=== PATIENT | female | born 1985 | race Hispanic/Latino ===

== ENCOUNTER 2020-08-10 19:08 | Inpatient (IN) | payer SELFPAY ==
[2020-08-10] MEDS ORDERED: Pantoprazole 40 MG VIAL ONE (19:43)
[2020-08-10] MEDS ORDERED: Ondansetron PF 4 MG/2 ML Vial ONE ×2 (19:43→22:44)
[2020-08-10] MEDS ORDERED: Ondansetron ODT 4 MG TAB ONE (19:45)
[2020-08-10 20:16] LABS: #Basophils 0.1 10x3/uL (0.0-0.2); #Eosinphils 0.1 10x3/uL (0.0-0.5); #Monocytes 0.6 10x3/uL (0.0-1.1); #Neutrophils 5.9 10x3/uL (1.5-8.4); %Basophils 0.9 % (0.0-2.0); %Eosinophils 1.1 % (0.0-6.0); %Lymphocytes 14.6 % (18.0-47.0); %Monocytes 7.8 % (0.0-10.0); %Neutrophils 75.1 % (40.0-75.0); Hemoglobin 12.6 g/dL (12.0-15.5); Mean Corpuscular HGB CONC 32.1 g/dL (32.0-36.0); Mean Corpuscular Hemoglobin 27.6 pg (27.0-33.0); Mean Corpuscular Volume 86.2 fl (81.6-98.3); Platelet Count 291 10x3/uL (150-450); RBC Distribution Width 13.3 % (11.5-14.5); Red Blood Cell (RBC) Count 4.56 10x6/uL (3.90-5.03); White Blood Cell (WBC) Count 7.9 10x3/uL (3.5-10.5)
[2020-08-10 20:21] LABS: BHCG - Serum Negative (NEGATIVE); Pregs Control Bar Appear? YES (CONTROL BAR)
[2020-08-10 20:22] LABS: Pregs Control Background? CLEAR/WHITE (CLR/WHITE)
[2020-08-10 20:29] LABS: ALT (SGPT) 390 U/L (8-55); AST (SGOT) 493 U/L (5-34); Alkaline Phosphatase 150 U/L (40-110); Anion Gap 14 mmol/L (10-20); BUN (Urea Nitrogen) 12 mg/dL (7.0-18.7); Bilirubin, Total 1.1 mg/dL (0.2-1.2); Calc. Creatinine Clearance 0 mL/min (70-130); Calcium 8.9 mg/dL (7.8-10.44); Carbon Dioxide 24 mmol/L (22-29); Chloride 105 mmol/L (98-107); Globulin 3.7 g/dL (2.4-3.5); Glucose 114 mg/dL (70-105); Potassium 4.1 mmol/L (3.5-5.1); Protein, Total 7.7 g/dL (6.0-8.3); Sodium 139 mmol/L (136-145)
[2020-08-10 22:11] LABS: Lipase 3899 U/L (8-78)
[2020-08-10] MEDS ORDERED: Morphine 4 MG/ML VIAL ONE (22:44)
[2020-08-10] MEDS ORDERED: Ondansetron PF 4 MG/2 ML Vial IVP PRN (22:49)
[2020-08-10] MEDS ORDERED: Calcium Carbonate 500 MG ChewTAB PO PRN (22:49)
[2020-08-10] MEDS ORDERED: Morphine 4 MG/ML VIAL SLOW IVP PRN ×2 (22:53)
[2020-08-10 23:50] VITALS: BMI 35.4
[2020-08-10] MEDS ORDERED: Famotidine/PF 20 mg/2ml Vial SLOW IVP SCH (23:59)
[2020-08-11] MEDS: Lactated Ringer's 1,000 ML IV SCH ×4 (00:24→22:53)
[2020-08-11 05:12] LABS: #Basophils 0.1 10x3/uL (0.0-0.2); #Monocytes 0.3 10x3/uL (0.0-1.1); %Basophils 0.6 % (0.0-2.0); %Eosinophils 0.1 % (0.0-6.0); %Lymphocytes 12.2 % (18.0-47.0); %Monocytes 3.9 % (0.0-10.0); %Neutrophils 82.8 % (40.0-75.0); Hemoglobin 12.1 g/dL (12.0-15.5); Mean Corpuscular HGB CONC 31.4 g/dL (32.0-36.0); Mean Corpuscular Hemoglobin 27.4 pg (27.0-33.0); Mean Corpuscular Volume 87.1 fl (81.6-98.3); Mean Platelet Volume 10.4 fl (7.4-10.4); Platelet Count 283 10x3/uL (150-450); RBC Distribution Width 13.2 % (11.5-14.5); Red Blood Cell (RBC) Count 4.42 10x6/uL (3.90-5.03); White Blood Cell (WBC) Count 8.5 10x3/uL (3.5-10.5)
[2020-08-11 05:27] LABS: ALT (SGPT) 598 U/L (8-55); AST (SGOT) 551 U/L (5-34); Albumin 3.7 g/dL (3.5-5.0); Alkaline Phosphatase 159 U/L (40-110); Anion Gap 13 mmol/L (10-20); BUN (Urea Nitrogen) 8 mg/dL (7.0-18.7); Bilirubin, Total 1.6 mg/dL (0.2-1.2); Calc. Creatinine Clearance 184 mL/min (70-130); Calcium 8.4 mg/dL (7.8-10.44); Carbon Dioxide 21 mmol/L (22-29); Cardiac Risk 2.7 (Less than 4.5); Chloride 106 mmol/L (98-107); Cholesterol 156 mg/dl (< 200 Desired); Globulin 3.3 g/dL (2.4-3.5); Glucose 119 mg/dL (70-105); HDL Cholesterol 58 mg/dL (>60 Neg Risk); LDL Cholesterol, Calculated 86 mg/dL; Potassium 3.7 mmol/L (3.5-5.1); Sodium 136 mmol/L (136-145); Triglycerides 61 mg/dL (Less than 150)
[2020-08-11 05:38] LABS: Lipase 1940 U/L (8-78)
[2020-08-11 06:23] LABS: Bilirubin Neg (Negative); Blood, Urine Negative (Negative); Clarity Clear (Clear); Glucose, Urine (Dipstick) Normal (Negative); Ketone, Urine 50 mg/dL (Negative); Leukocyte Negative (Negative); Nitrite Negative (Negative); Protein, Urine (Dipstick) Negative (Neg-Trace); Specific Gravity, Urine 1.015 (1.002-1.036)
[2020-08-11 06:46] LABS: Bacteria/HPF 3+ HPF (None Seen); RBC/HPF 0-3 HPF (0-3); Squamous Epithelial 0-3 HPF (0-3); WBC/HPF 0-3 HPF (0-3)
[2020-08-11] MEDS: Famotidine/PF 20 mg/2ml Vial SLOW IVP SCH ×2 (09:15→22:54)
[2020-08-11] MEDS ORDERED: Fentanyl 100 MCG/2 ML VIAL ONE ×2 (10:46→12:50)
[2020-08-11] MEDS ORDERED: PROPOFOL 20 ML ONE (10:46)
[2020-08-11] MEDS ORDERED: Glycopyrrolate 0.2 MG/ML 5 ML SYRINGE ONE (10:47)
[2020-08-11] MEDS ORDERED: Ondansetron PF 4 MG/2 ML Vial ONE (10:47)
[2020-08-11] MEDS ORDERED: Dexamethasone 20 MG/5 ML VIAL ONE (10:47)
[2020-08-11] MEDS ORDERED: diphenhydrAMINE 50 MG/ML VIAL ONE (10:48)
[2020-08-11] MEDS ORDERED: Lidocaine 2% PF 5 ML VIAL ONE (10:48)
[2020-08-11] MEDS ORDERED: Rocuronium Bromide 10 MG/ML (10ML VIAL) ONE (10:48)
[2020-08-11] MEDS ORDERED: Ketorolac Tromethamine 15 MG/ML VIAL ONE (10:49)
[2020-08-11] MEDS ORDERED: Bupivacaine 0.25% HCL 30 ML VIAL ONE (11:01)
[2020-08-11] MEDS ORDERED: EPINEPHrine 1 MG/ML AMP ONE (11:01)
[2020-08-11] MEDS ORDERED: Iopamidol 30 ML ONE (11:02)
[2020-08-11] MEDS ORDERED: CEFAZOLIN 1 GM VIAL ONE (11:28)
[2020-08-11] MEDS: Acetaminophen/Codeine 30-300mg Tablet PO PRN ×2 (16:19→22:54)
[2020-08-11 17:30] LABS: Hemoglobin A1c 5.6 % (4.0-6.0)
[2020-08-11 18:28] LABS: SARS-CoV-2 PCR by NAA Not Detected (NotDetected)
[2020-08-11] MEDS ORDERED: Enoxaparin Sodium 40 MG/0.4 ML SYRINGE SC SCH (21:00)
[2020-08-12] MEDS: Lactated Ringer's 1,000 ML IV SCH ×2 (03:47→06:13)
[2020-08-12] MEDS: Famotidine/PF 20 mg/2ml Vial SLOW IVP SCH (08:21)
[2020-08-12 08:57] VITALS: BP 122/75; TEMP 98.1
== END 2020-08-12 11:00 | disposition home or self-care (01) | DRG 419 ==
LOC: CSHERS 19:08 → CSHTELE 22:49
PROVIDERS: ADMIT Student in an Organized Health Care Education/Training Program; ATTEND Internal Medicine
PROC: 0FT44ZZ Resection of Gallbladder, Percutaneous Endoscopic Approach (ICD-10-PCS; principal; 2020-08-11)
PROC: BF532Z0 Other Imaging of Gallbladder and Bile Ducts using Fluorescing Agent, Intraoperative (ICD-10-PCS; 2020-08-11)
DX: K85.10 Biliary acute pancreatitis without necrosis or infection (principal); Z68.35 Body mass index [BMI] 35.0-35.9, adult; K80.20 Calculus of gallbladder without cholecystitis without obstruction; E86.0 Dehydration; E66.01 Morbid (severe) obesity due to excess calories; R73.9 Hyperglycemia, unspecified; Z20.822 Contact with and (suspected) exposure to COVID-19
CPT/HCPCS: 47532; 71045; 76000; 76705; 80053; 80061; 81001; 83036; 83690; 84703; 85025; 87635; 88304; 93005; 96374; 96375; C9113; J0171; J0690; J1100; J1200; J1610; J1650; J1885; J2001; J2270; J2405; J2704; J3010; J7120; Q0162; Q9967; S0020; S0028; U0003; U0005

== ENCOUNTER 2022-04-01 06:33 | Emergency (ER) | payer SELFPAY ==
[2022-04-01] MEDS ORDERED: Ketorolac Tromethamine 30 MG/ML VIAL ONE (07:15)
[2022-04-01 08:23] LABS: Bilirubin Neg (Negative); Blood, Urine 25 (Negative); Clarity Slightly Cloudy (Clear); Glucose, Urine (Dipstick) Normal (Negative); Ketone, Urine Negative (Negative); Leukocyte 100 (Negative); Nitrite Negative (Negative); Protein, Urine (Dipstick) 15 mg/dl (Neg-Trace); Urobilinogen Normal mg/dL (Less than 2)
[2022-04-01 08:25] LABS: Pregnancy Test - Urine (BHCG) Negative (Negative); Pregu Control Background? CLEAR/WHITE (CLR/WHITE); Pregu Control Bar Appear? YES (CONTROL BAR)
[2022-04-01 08:29] LABS: Bacteria/HPF 2+ HPF (None Seen)
[2022-04-01] MEDS ORDERED: Cephalexin 250 MG CAP ONE (08:40)
[2022-04-01] MEDS ORDERED: Enoxaparin Sodium 80 MG/0.8 ML SYRINGE ONE (13:30)
== END 2022-04-01 08:56 | disposition home or self-care (01) ==
LOC: CSHERS 06:33
DX: U07.1 COVID-19 (principal); N39.0 Urinary tract infection, site not specified
CPT/HCPCS: 81003; 81015; 81025; 87086; 87804; 94760; 96372; 99284; J1650; J1885; U0003; U0005